=== PATIENT | female | born 1995 | race Caucasian/White ===

== ENCOUNTER 2022-03-10 02:38 | Inpatient (IN) | payer MEDICAID ==
[2022-03-10 05:23] LABS: HEMOGLOBIN A1C 5.8 %
[2022-03-10] MEDS ORDERED: Water For Irrigation,Sterile 1,000 ML Container IRR PRN (06:27)
[2022-03-10] MEDS ORDERED: Tranexamic Acid 1,000 MG in Sodium Chloride 0.9% 100 ML IV PRN (06:27)
[2022-03-10] MEDS ORDERED: Lidocaine 1% 50 ML MDV INJECT PRN (06:27)
[2022-03-10] MEDS ORDERED: Methylergonovine 0.2 MG/1 ML Amp IM PRN (06:27)
[2022-03-10] MEDS ORDERED: Butorphanol 1 MG/ML SDV IVPUSH PRN (06:27)
[2022-03-10] MEDS ORDERED: Misoprostol 200 MCG Tab PO PRN (06:27)
[2022-03-10] MEDS ORDERED: Sodium Chloride 0.9% 20 ML SDV IV PRN (06:27)
[2022-03-10] MEDS ORDERED: Carboprost Tromethamine 250 MCG/1 ML Amp IM PRN (06:27)
[2022-03-10] MEDS ORDERED: Sodium Chloride 0.9% 2.5 ML Syringe FLUSH PRN (06:27)
[2022-03-10] MEDS ORDERED: Sodium Chloride 0.9% 10 ML Syringe FLUSH PRN (06:27)
[2022-03-10 06:40] LABS: C. TRACHOMATIS BY PCR NOT DETECTED; N. GONORRHOEAE BY PCR NOT DETECTED
[2022-03-10] MEDS ORDERED: Terbutaline 1 MG/ML SDV SUBCUT PRN (12:42)
[2022-03-10] MEDS ORDERED: Oxytocin/0.9 % Sodium Chloride 30 UNIT/500 ML BAG IV SCH ×2 (12:45→13:30)
[2022-03-10] MEDS: Lactated Ringers 1,000 ML IV SCH ×3 (13:46→19:25)
[2022-03-10] MEDS ORDERED: Ampicillin 2 GM in Sodium Chloride 0.9% 100 ML IV ONE (14:00)
[2022-03-10] MEDS ORDERED: Ropivacaine/PF 400 MG/200 ML PCA ONE (16:18)
[2022-03-10] MEDS ORDERED: ePHEDrine 50 MG/ML SDV IVPUSH PRN (16:39)
[2022-03-10] MEDS ORDERED: Ropivacaine HCl/PF 400 MG in Premix Bag 1 BAG EPIDUR SCH (16:45)
[2022-03-10] MEDS ORDERED: Phenylephrine HCl In 0.9% NaCl 1 MG/10 ML Vial IVPUSH SCH (16:45)
[2022-03-10] MEDS ORDERED: Ampicillin 1 GM in Sodium Chloride 0.9% 50 ML IV SCH (18:00)
[2022-03-10] MEDS ORDERED: Ibuprofen 800 MG Tab PO PRN (21:37)
[2022-03-10] MEDS ORDERED: Witch Hazel Medicated Pads 40/Jar TOP PRN (21:37)
[2022-03-10] MEDS ORDERED: Docusate Sodium 100 MG Cap PO PRN (21:37)
[2022-03-10] MEDS ORDERED: Ibuprofen 400 MG Tab PO PRN (21:37)
[2022-03-10] MEDS ORDERED: Acetaminophen 500 MG Tab PO PRN ×2 (21:37)
[2022-03-10] MEDS ORDERED: Benzocaine/Menthol 20%-0.5% Spray 78 GM Cannister TOP PRN (21:37)
[2022-03-10] MEDS ORDERED: Lanolin 100% Cream 7 GM Tube TOP PRN (21:37)
[2022-03-10] MEDS ORDERED: Bisacodyl 10 MG Supp RECTAL PRN (21:37)
[2022-03-10] MEDS ORDERED: Ampicillin/Sulbactam Na 3 GM in Sodium Chloride 0.9% 100 ML IV ONE (21:42)
[2022-03-11] MEDS ORDERED: Ampicillin/Sulbactam Na 1.5 GM in Sodium Chloride 0.9% 50 ML IV SCH (02:00)
[2022-03-11] MEDS: Ampicillin/Sulbactam Na 1.5 GM in Sodium Chloride 0.9% 50 ML IV SCH ×2 (08:14→14:11)
[2022-03-12 04:29] VITALS: BP 124/77; PULSE 79
== END 2022-03-12 11:35 | disposition home or self-care (01) | DRG 807 ==
LOC: MW.OBCHECK 02:38 → MW.OB 02:39 → MW.OBCHECK 06:28 → OBSVTOIN 20:46 → MW.OB 03-11 02:31
PROVIDERS: ADMIT Obstetrics & Gynecology; ATTEND Obstetrics & Gynecology
PROC: 10E0XZZ Delivery of Products of Conception, External Approach (ICD-10-PCS; principal; 2022-03-10)
PROC: 0KQM0ZZ Repair Perineum Muscle, Open Approach (ICD-10-PCS; 2022-03-10)
PROC: 4A1HXCZ Monitoring of Products of Conception, Cardiac Rate, External Approach (ICD-10-PCS; 2022-03-10)
PROC: 3E0R3BZ Introduction of Anesthetic Agent into Spinal Canal, Percutaneous Approach (ICD-10-PCS; 2022-03-10)
PROC: 00HU33Z Insertion of Infusion Device into Spinal Canal, Percutaneous Approach (ICD-10-PCS; 2022-03-10)
DX: O48.0 Post-term pregnancy (principal); Z37.0 Single live birth; Z3A.40 40 weeks gestation of pregnancy; O77.0 Labor and delivery complicated by meconium in amniotic fluid; O70.1 Second degree perineal laceration during delivery; Z20.822 Contact with and (suspected) exposure to COVID-19
CPT/HCPCS: 01967; 36415; 51702; 59025; 59409; 76815; 76815-26; 80305-QW; 81003; 82803; 82947; 83036; 85014; 85018; 85025; 86592; 86706; 86762; 86803; 86850; 86900; 86901; 87340; 87389; 87491; 87591; 87653; A9270-GY; J0290; J0295; J2590; J2795; J7120; U0002

== ENCOUNTER 2023-09-22 23:37 | Inpatient (IN) | payer MEDICAID ==
[2023-09-23] MEDS ORDERED: Sodium Chloride 0.9% 10 ML Syringe FLUSH PRN (00:08)
[2023-09-23] MEDS ORDERED: Water For Irrigation,Sterile 1,000 ML Container IRR PRN (00:08)
[2023-09-23] MEDS ORDERED: Methylergonovine 0.2 MG/1 ML Amp IM PRN (00:08)
[2023-09-23] MEDS ORDERED: Sodium Chloride 0.9% 20 ML SDV IV PRN (00:08)
[2023-09-23] MEDS ORDERED: Lidocaine 1% 50 ML MDV INJECT PRN (00:08)
[2023-09-23] MEDS ORDERED: Misoprostol 200 MCG Tab PO PRN (00:08)
[2023-09-23] MEDS ORDERED: Carboprost Tromethamine 250 MCG/1 mL Vial IM PRN (00:08)
[2023-09-23] MEDS ORDERED: Sodium Chloride 0.9% 2.5 ML Syringe FLUSH PRN (00:08)
[2023-09-23] MEDS ORDERED: Tranexamic Acid IN NACL,ISO-OS 1,000 MG in Premix Bag 1 BAG IV PRN (00:08)
[2023-09-23] MEDS: Lactated Ringers 1,000 ML IV SCH (00:20)
[2023-09-23] MEDS ORDERED: Ropivacaine HCl/PF 200 ML ONE (00:22)
[2023-09-23] MEDS ORDERED: Bupivacaine 0.5% 10 ML SDV ONE (00:22)
[2023-09-23 00:31] LABS: HEMATOCRIT 34.6 % (37.0-47.0); HEMOGLOBIN 10.9 g/dL (12.0-16.0); MEAN CORPUSCULAR HEMOGLOBIN 24.2 pg (28.0-32.0); MEAN CORPUSCULAR HGB CONC 31.5 g/dL (32.0-36.0); MEAN CORPUSCULAR VOLUME 76.7 fL (83.0-99.0); MEAN PLATELET VOLUME 10.4 fL (9.4-12.3); PLATELET COUNT,PLT 274 K/uL (150-400); RED BLOOD CELL COUNT 4.51 M/uL (4.10-5.30); WHITE BLOOD CELL COUNT,WBC 10.96 K/uL (3.9-11.3)
[2023-09-23] MEDS ORDERED: ePHEDrine 50 MG/ML SDV IVPUSH PRN ×2 (00:42)
[2023-09-23] MEDS ORDERED: Phenylephrine HCl 0.5 MG/5 ML AMP IVPUSH PRN (00:42)
[2023-09-23] MEDS ORDERED: Phenylephrine 1% 10 MG/ML SDV ONE (00:46)
[2023-09-23] MEDS: Phenylephrine HCl 0.5 MG/5 ML AMP ONE (00:48)
[2023-09-23] MEDS: Ondansetron 4 MG/2 ML SDV ONE (00:51)
[2023-09-23] MEDS ORDERED: Ondansetron 4 MG/2 ML SDV IVPUSH PRN (00:51)
[2023-09-23] MEDS: Ropivacaine HCl/PF 400 MG in Premix Bag 1 BAG EPIDUR SCH (00:55)
[2023-09-23 02:14] LABS: APPEARANCE,URINE SLT CLOUDY; BILIRUBIN,URINE NEGATIVE (NEGATIVE); COLOR,URINE YELLOW; GLUCOSE,URINE NEGATIVE (NEGATIVE); KETONES,URINE NEGATIVE (NEGATIVE); LEUKOCYTE ESTERASE,URINE NEGATIVE (NEGATIVE); NITRITE,URINE NEGATIVE (NEGATIVE); OCCULT BLOOD,URINE MODERATE (NEGATIVE); PROTEIN,URINE NEGATIVE (NEGATIVE); UROBILINOGEN,URINE 0.2 EU/dL (<2.0)
[2023-09-23 02:23] LABS: AMPHETAMINES SCREEN, URINE NEGATIVE (CUTOFF=500); BARBITURATE SCREEN,URINE NEGATIVE (CUTOFF=200); BENZODIAZEPINES SCREEN,URINE NEGATIVE (CUTOFF=150); BUPRENORPHINE SCREEN,URINE NEGATIVE (CUTOFF=10); METHADONE SCREEN, URINE NEGATIVE (CUTOFF=200); METHAMPHETAMINES SCREEN, URINE NEGATIVE (CUTOFF=500); OXYCODONE SCREEN,URINE NEGATIVE (CUT0FF=100); PCP SCREEN,URINE NEGATIVE (CUTOFF=25); THC SCREEN,URINE 20 NG/ML NEGATIVE (CUTOFF=50)
[2023-09-23 02:26] LABS: BACTERIA,URINE 2+ (NEGATIVE); SQUAMOUS EPITHELIAL CELLS,UR MODERATE; WBC,URINE 0-1 (0-5/HPF)
[2023-09-23 02:27] LABS: MUCUS,URINE LIGHT (NONE-MOD)
[2023-09-23 03:45] LABS: C. TRACHOMATIS BY PCR NOT DETECTED; N. GONORRHOEAE BY PCR NOT DETECTED
[2023-09-23] MEDS: Oxytocin/0.9 % Sodium Chloride 30 UNIT/500 ML BAG IV SCH (06:22)
[2023-09-23] MEDS ORDERED: Docusate Sodium 100 MG Cap PO PRN (09:11)
[2023-09-23] MEDS: Ibuprofen 800 MG Tab PO PRN (14:31)
[2023-09-23] MEDS: Witch Hazel Medicated Pads 40/Jar TOP PRN (14:32)
[2023-09-23] MEDS: Benzocaine/Menthol 20%-0.5% Spray 78 GM Cannister TOP PRN (14:32)
[2023-09-23] MEDS: Lanolin 100% Cream 7 GM Tube TOP PRN (14:33)
[2023-09-23] MEDS: Acetaminophen 500 MG Tab PO PRN (17:10)
[2023-09-23 22:46] LABS: GROUP B STREP BY PCR NEGATIVE (NEGATIVE)
[2023-09-24 09:11] VITALS: BP 111/52; PULSE 74
[2023-09-25 14:07] LABS: HIV 1,2 COMBO AG/AB CIA W/RFLX Negative (Negative)
== END 2023-09-24 10:23 | disposition home or self-care (01) | DRG 807 ==
LOC: MW.OBCHECK 23:37 → MW.OB 23:37 → MW.OBCHECK 09-23 00:08 → MW.OB 09-23 00:08 → OBSVTOIN 09-23 06:19 → MW.OB 09-23 11:09
PROVIDERS: ADMIT Obstetrics & Gynecology; ATTEND Obstetrics & Gynecology
PROC: 10E0XZZ Delivery of Products of Conception, External Approach (ICD-10-PCS; principal; 2023-09-23)
PROC: 3E033VJ Introduction of Other Hormone into Peripheral Vein, Percutaneous Approach (ICD-10-PCS; 2023-09-23)
PROC: 3E0R3BZ Introduction of Anesthetic Agent into Spinal Canal, Percutaneous Approach (ICD-10-PCS; 2023-09-23)
PROC: 00HU33Z Insertion of Infusion Device into Spinal Canal, Percutaneous Approach (ICD-10-PCS; 2023-09-23)
DX: O99.214 Obesity complicating childbirth (principal); Z37.0 Single live birth; O69.81X0 Labor and delivery complicated by cord around neck, without compression, not applicable or unspecified; Z3A.39 39 weeks gestation of pregnancy
CPT/HCPCS: 01967; 36415; 51702; 59025; 80305-QW; 81001; 85027; 86592; 86762; 86803; 86850; 86900; 86901; 87340; 87389; 87491; 87591; 87653; A9270-GY; J0665; J2371; J2405; J2590; J2795; J7120